=== PATIENT | female | born 1990 | race Caucasian/White ===

== ENCOUNTER 2021-04-01 09:00 | Emergency (ER) | payer MEDICAID, OTHER ==
[~2021-04-01] VITALS: Ht 170.2 cm; Wt 70.3 kg
[2021-04-01 09:08] VITALS: BP_SYST 117
--- NOTE | 2021-04-01 09:10 | NUR ---
Patient to ER bed 6 to gown for evaluation. Side rails up. Report given to Oscar HUDDLESTON.
--- NOTE | 2021-04-01 09:20 | NUR ---
HERE FROM HOME FOR RT FOOT PAIN S/P INJURY. NO DISTRESS, DENIES CP/SOB
--- NOTE | 2021-04-01 09:30 | NUR ---
DR ARREDONDO IN TO ASSESS
--- NOTE | 2021-04-01 09:40 | NUR ---
X-RAYS COMPLETED, NO DISTRESS
[2021-04-01 10:42] VITALS: BP_SYST 118
--- NOTE | 2021-04-01 10:43 | NUR ---
Patient given written and verbal discharge instructions and verbalizes understanding. ER MD discussed with patient the results and treatment provided. Patient in stable condition. ID arm band removed. Patient educated on pain management and to follow up with PMD. Pain Scale 0/10 Opportunity for questions provided and answered.
== END 2021-04-01 10:42 | disposition home or self-care (01) ==
LOC: SED 09:00
DX: S83.91XA Sprain of unspecified site of right knee, initial encounter (principal); B35.3 Tinea pedis; W01.0XXA Fall on same level from slipping, tripping and stumbling without subsequent striking against object, initial encounter; Y93.89 Activity, other specified; Y92.89 Other specified places as the place of occurrence of the external cause; Y99.8 Other external cause status
CPT/HCPCS: 73564; 99283